=== PATIENT | female | born 1955 | race Caucasian/White ===

== ENCOUNTER → 2021-01-06 | Outpatient (CLI) | payer OTHER | LOC: MC.RAD 13:56 | DX: Z12.31 Encounter for screening mammogram for malignant neoplasm of breast (principal); Z98.82 Breast implant status ==

== ENCOUNTER → 2021-11-28 | Outpatient (CLI) | payer OTHER | LOC: COL.RAD 14:35 | DX: Z12.2 Encounter for screening for malignant neoplasm of respiratory organs (principal); R91.8 Other nonspecific abnormal finding of lung field; Z87.891 Personal history of nicotine dependence ==

== ENCOUNTER 2022-06-10 07:29 | Day surgery (SDC) | payer OTHER ==
[~2022-06-10] VITALS: Ht 165.1 cm; Wt 113.5 kg
[2022-06-10] MEDS ORDERED: PRAVACHOL 20MG20 MG PO (08:59)
[2022-06-10] MEDS ORDERED: ERGOCALCIFER50000 IU PO (08:59)
[2022-06-10] MEDS ORDERED: OZEMPIC0.25 MG/01 SQ (08:59)
[2022-06-10] MEDS ORDERED: LEVOXYL0.137 MG PO (09:00)
[2022-06-10] MEDS ORDERED: ACTOS 15MG TAB15 MG PO (09:00)
[2022-06-10] MEDS ORDERED: KLOR-CON 1010 MEQ PO (09:01)
[2022-06-10] MEDS ORDERED: MAXZIDE-25MG TA1 TAB PO (09:01)
[2022-06-10] MEDS ORDERED: TRELEGY ELLIPT1 EACH IH (09:02)
[2022-06-10 09:05] VITALS: BP 128/63; PULSE 70; TEMP 97.5
[2022-06-10 09:06] VITALS: BP 161/68; PULSE 65; TEMP 97.1
[2022-06-10 09:20] VITALS: BP 137/74; PULSE 66
[2022-06-10 09:35] VITALS: BP 135/83; PULSE 64
[2022-06-10 09:50] VITALS: BP 137/86; PULSE 61
--- NOTE | 2022-06-10 10:35 | NUR ---
0905 - 1005: PT TO RECOVERY BAY 1 FROM ENDO [facility] S/P COLONOSCOPY WITH TRANSVERSE POLYPECTOMY PLACED ON MONITOR, VSS ON RA. A&O, NAD. ASSISTED TO CHAIR, STEADY GAIT. RECEIVED REPORT AND ASSUMED CARE OF PT FROM MELCHOR ECHEVERRIA /RIDE AT BEDSIDE PROVIDED TEA, JUICE, TOAST. DR GOLDSMITH TO SPEAK WITH PT/FAMILY AFTER PROCEEDURE. PT HAS REMAINED A&O, NAD, VSS ON RA, TOLERATING PO, IS WITHOUT SIGNIFICANT COMPLAINT, WITH STEADY GAIT THRU OUT ENDO STAY IV D/C'D. D/C INSTRUCTIONS, ANY FOLLOW UP REVIEWED AND HANDED TO PT. ALL QUESTIONS AND CONCERNS ADDRESSED TO PT SATISFACTION. TAKEN TO EXIT VIA W/C WITH ALL BELONGINGS AND PAPERWORK IN HAND, ASSISTED INTO PASSENGER SEAT OF POV. TO DRIVE HOME.
== END 2022-06-10 10:05 | disposition home or self-care (01) ==
LOC: SDCO 07:29
DX: Z12.11 Encounter for screening for malignant neoplasm of colon (principal); D12.3 Benign neoplasm of transverse colon; K57.30 Diverticulosis of large intestine without perforation or abscess without bleeding; I10 Essential (primary) hypertension; G47.33 Obstructive sleep apnea (adult) (pediatric); J44.9 Chronic obstructive pulmonary disease, unspecified; Z87.891 Personal history of nicotine dependence
CPT/HCPCS: J2704; J7120